=== PATIENT | male | born 1980 | race Caucasian/White ===

== ENCOUNTER 2017-02-19 16:51 | Emergency (ER) | payer OTHER ==
--- NOTE | ~2017-02-19 | CT2 ---
[facility] A Service of [facility] RADIOLOGY TEXT RESULTS PATIENT: TREE DE LA VEGA LOCATION: [facility] : [birth year] UNIT #: [id number] AGE: [address]: Valarie Moseley MD SEX: M ORDER DR: [id number] [facility] [address] [place], [place] [address] [id number] E MR#: [id number] Acc #: [id number] NAME: TREE DE LA VEGA : 1980 SEX: M STUDY DATE/TIME: 02/19/2017 19:29 UNIT: DANDRE ROOM: STUDY DESCRIPTION: CT Abd and Pelv W Cont Attending Physician: Valarie Moseley M.D. Ordering Physician: Valarie Moseley M.D. MEDICAL IMAGING REPORT This report is preliminary unless electronic signature is present EXAM CT abdomen and pelvis. INDICATION Rectal bleeding and lower abdominal pain for 3 days. Rectal bleeding actually started this morning whereas the pain started 3 days ago. TECHNIQUE Axial CT images were obtained from the dome of the diaphragm through the symphysis pubis following administration of oral and intravenous contrast material. This CT exam was performed with one or more of the following radiation dose reduction techniques: automatic exposure control, adjustment of mA and/or kV according to patient size, and iterative reconstruction. FINDINGS Images through the lung bases are clear. Liver and gallbladder appear unremarkable as are the spleen, stomach, proximal small bowel, adrenal glands pancreas gallbladder and kidneys. No free fluid or adenopathy is seen within the abdomen. There is no evidence mechanical bowel obstruction. Patient's appendix is visualized and is within normal limits. Prostate gland is within normal limits. Urinary bladder appears unremarkable. No free fluid or adenopathy is seen within the pelvis. Review of bony windows. Does not demonstrate any aggressive osseous abnormalities. IMPRESSION No acute intraabdominal, or intrapelvic process is identified. Solid [facility] A Service of [facility] RADIOLOGY TEXT RESULTS PATIENT: TREE DE LA VEGA LOCATION: [facility] : 80 UNIT #: [id number] AGE: [address]: Valarie Moseley MD SEX: M ORDER DR: organs appear unremarkable. There is no evidence of mechanical bowel obstruction. Patient's appendix is visualized and is within normal limits. Dictated by... Umu Bond M.D. THIS IS AN ELECTRONICALLY VERIFIED REPORT Umu Bond M.D. at 02/20/2017 10:59 AM VILMA/sofia TD: 02/20/2017 03:44 JOB #: [id number] MEDICAL IMAGING REPORT Page 1 of 1 COPY
[2017-02-19 18:06] LABS: BASOPHIL% 0.5 % (0-2.5); EOSINOPHIL# 0.2 X10e3 (0-0.7); EOSINOPHIL% 1.9 % (0.0-7.0); HEMATOCRIT 45.1 % (38.0-50.0); HEMOGLOBIN 15.5 gm/dL (13.0-16.0); LYMPHOCYTE# 2.7 X10e3 (1.0-3.5); MEAN CELL VOLUME 91.4 FL (83-96); MEAN CORPUSCULAR HEMOGLOBIN 31.3 PG (28-34); MEAN CORPUSCULAR HGB CONC 34.3 g/dL (30-36); MEAN PLATELET VOLUME 8.5 FL (6.5-11.5); MONOCYTE# 0.4 X10e3 (0-1.0); MONOCYTE% 4.9 % (3.0-12.0); NEUTROPHIL# 5.7 X10e3 (1.5-7.1); NEUTROPHIL% 62.7 % (40-75); PLATELET COUNT 247 X10e3 (140-420); RED BLOOD COUNT 4.93 X10e (3.90-5.60); RED CELL DISTRIBUTION WIDTH 12.9 % (11.0-15.5); WHITE BLOOD COUNT 9.1 X10e3 (4.0-10.5)
[2017-02-19 18:09] LABS: DIFF IND NO
[2017-02-19 18:38] LABS: ALBUMIN SERUM 4.5 g/dL (3.5-5.0); BILIRUBIN, DIRECT 0.1 mg/dL (0.0-0.2); BILIRUBIN,INDIRECT 0.5 mg/dL (0.0-0.9); BILIRUBIN,TOTAL 0.6 mg/dL (0.2-2.0); BUN/CREATININE RATIO 17.27; CALCIUM SERUM 9.4 mg/dL (8.4-10.2); CREATININE SERUM 1.1 mg/dL (0.6-1.4); GLOM FILT RATE Estimated 85.9 mL/min (>60); POTASSIUM 3.8 mmol/L (3.5-5.1); PROTEIN TOTAL SERUM 7.3 g/dL (6.0-8.3)
[2017-02-19 18:52] LABS: INR 0.9; PROTHROMBIN TIME (PATIENT) 9.7 SECONDS (9.6-11.5)
[2017-02-19 22:41] LABS: URINE SOURCE CLEAN CATCH
[2017-02-19 22:50] LABS: URINE APPEARANCE CLEAR; URINE BILIRUBIN NEG (NEG); URINE BLOOD NEG (NEG); URINE COLOR YELLOW; URINE GLUCOSE NEG (NEG); URINE KETONE NEG (NEG); URINE LEUKOCYTE ESTERASE NEG (NEG); URINE NITRATE NEG (NEG); URINE PROTEIN NEG (NEG); URINE SPECIFIC GRAVITY 1.032 (1.003-1.035); URINE UROBILINOGEN 0.2 MG/DL (NEG)
[2017-02-19 22:57] LABS: CULTURE INDICATED? NO
[2017-02-21] MEDS ORDERED: DIOVAN (16:51)
[2017-02-21] MEDS ORDERED: NEXIUM (16:51)
== END 2017-02-20 00:24 | disposition home or self-care (01) ==
LOC: CED 16:51
PROVIDERS: Emergency Medicine
DX: K62.5 Hemorrhage of anus and rectum (principal); I10 Essential (primary) hypertension; Z88.1 Allergy status to other antibiotic agents; Z88.8 Allergy status to other drugs, medicaments and biological substances
CPT/HCPCS: 36415; 74177; 80048; 80076; 81003; 83690; 85025; 85610; 96374; 96375; 99284; J2270; J2405; Q9967

== ENCOUNTER 2017-02-21 16:47 | Emergency (ER) | payer OTHER ==
[2017-02-21] MEDS ORDERED: NEXIUM (16:51)
[2017-02-21] MEDS ORDERED: DIOVAN (16:51)
[2017-02-21 18:08] LABS: BASOPHIL% 0.5 % (0-2.5); EOSINOPHIL# 0.3 X10e3 (0-0.7); EOSINOPHIL% 2.9 % (0.0-7.0); HEMATOCRIT 44.1 % (38.0-50.0); HEMOGLOBIN 15.7 gm/dL (13.0-16.0); LYMPHOCYTE# 2.3 X10e3 (1.0-3.5); MEAN CELL VOLUME 90.9 FL (83-96); MEAN CORPUSCULAR HEMOGLOBIN 32.3 PG (28-34); MEAN CORPUSCULAR HGB CONC 35.5 g/dL (30-36); MEAN PLATELET VOLUME 8.3 FL (6.5-11.5); MONOCYTE# 0.4 X10e3 (0-1.0); MONOCYTE% 4.5 % (3.0-12.0); NEUTROPHIL# 5.9 X10e3 (1.5-7.1); NEUTROPHIL% 66.1 % (40-75); PLATELET COUNT 246 X10e3 (140-420); RED BLOOD COUNT 4.86 X10e (3.90-5.60); RED CELL DISTRIBUTION WIDTH 12.9 % (11.0-15.5); WHITE BLOOD COUNT 8.9 X10e3 (4.0-10.5)
[2017-02-21 18:21] LABS: DIFF IND NO
[2017-02-21 18:29] LABS: ALBUMIN SERUM 4.2 g/dL (3.5-5.0); BILIRUBIN, DIRECT 0.1 mg/dL (0.0-0.2); BILIRUBIN,INDIRECT 0.2 mg/dL (0.0-0.9); BILIRUBIN,TOTAL 0.3 mg/dL (0.2-2.0); PROTEIN TOTAL SERUM 7.1 g/dL (6.0-8.3)
[2017-02-21 19:01] LABS: BUN/CREATININE RATIO 11.66; CALCIUM SERUM 9.4 mg/dL (8.4-10.2); CREATININE SERUM 1.2 mg/dL (0.6-1.4); GLOM FILT RATE Estimated 77.4 mL/min (>60); POTASSIUM 3.9 mmol/L (3.5-5.1)
== END 2017-02-21 18:57 | disposition home or self-care (01) ==
LOC: SED 16:47
PROVIDERS: Emergency Medicine
DX: K62.5 Hemorrhage of anus and rectum (principal); J44.9 Chronic obstructive pulmonary disease, unspecified; F17.200 Nicotine dependence, unspecified, uncomplicated; Z98.890 Other specified postprocedural states; Z88.6 Allergy status to analgesic agent; Z88.1 Allergy status to other antibiotic agents
CPT/HCPCS: 36415; 80048; 80076; 85025; 96374; 96375; 99283; C9113; J1170; J2405

== ENCOUNTER 2017-02-26 19:00 | Emergency (ER) | payer OTHER ==
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
[~2017-02-26 19:00] MED LIST: DIOVAN; NEXIUM
== END 2017-02-26 22:33 | disposition home or self-care (01) ==
LOC: CFTX 19:00 → CED 19:00 → CFTX 19:48
DX: S81.811A Laceration without foreign body, right lower leg, initial encounter (principal); S90.01XA Contusion of right ankle, initial encounter; F32.9 Major depressive disorder, single episode, unspecified; J44.9 Chronic obstructive pulmonary disease, unspecified; F17.210 Nicotine dependence, cigarettes, uncomplicated; Z88.6 Allergy status to analgesic agent; Z88.1 Allergy status to other antibiotic agents; W17.89XA Other fall from one level to another, initial encounter; Y92.410 Unspecified street and highway as the place of occurrence of the external cause
CPT/HCPCS: 12002; 73590; 73610; 99284

== ENCOUNTER 2017-02-28 10:12 | Emergency (ER) | payer OTHER ==
--- NOTE | ~2017-02-28 | CT2 ---
[facility] A Service [facility] RADIOLOGY TEXT RESULTS PATIENT: CHRISTIAN DE LA VEGA LOCATION: SED : 80 UNIT #: [id number] AGE: [address]: Keshawn Sue MD SEX: M ORDER DR: [id number] [place] [id number] E MR#: [id number] Acc #: [id number] NAME: CHRISTIAN DE LA VEGA : 1980 SEX: M STUDY DATE/TIME: 02/28/2017 12:35 UNIT: SED ROOM: STUDY DESCRIPTION: CT Abd and Pelv W Cont Attending Physician: Keshawn Sue M.D. Ordering Physician: Keshawn Sue M.D. Primary Care Physician: No Primary Care Physician MEDICAL IMAGING REPORT This report is preliminary unless electronic signature is present. EXAM CT of the abdomen and pelvis with IV contrast media 02/28 COMPARISON 02/19/2017 HISTORY History supplied is diffuse body pain for 3 months worse over the last few days. TECHNIQUE Axial imaging of the abdomen and pelvis was performed with IV contrast media. This CT exam was performed with one or more of the following radiation dose reduction techniques: automatic exposure control, adjustment of mA and/or kV according to patient size, and iterative reconstruction. FINDINGS Lung bases are clear. The liver, gallbladder, spleen, pancreas, adrenal glands and both the right and left kidney are normal. No dilated or thickened loops of bowel are identified. The appendix is normal. No pelvic masses or fluid collections are seen. Bladder is unremarkable. CONCLUSION Normal CT of the abdomen and pelvis. No change from previous study. Dictated by... Srikanth Hall M.D. THIS IS AN ELECTRONICALLY VERIFIED REPORT Srikanth Hall M.D. at 03/03/2017 9:18 AM GUYK/guy [facility] A Service [facility] RADIOLOGY TEXT RESULTS PATIENT: CHRISTIAN DE LA VEGA LOCATION: SED : 80 UNIT #: [id number] AGE: [address]: Keshawn Sue MD SEX: M ORDER DR: TD: 02/28/2017 15:08 JOB #: [id number] MEDICAL IMAGING REPORT Page 1 of 1
[2017-02-28] MEDS ORDERED: FLAGYL PO (10:23)
[2017-02-28] MEDS ORDERED: NEURONTIN300 MG PO (10:23)
[2017-02-28] MEDS ORDERED: BENTYL20 MG PO (10:24)
[2017-02-28] MEDS ORDERED: CIPRO PO (10:24)
[2017-02-28 10:40] LABS: URINE SOURCE CLEAN CATCH
[2017-02-28 10:41] LABS: MICRO INDICATED? NO; URINE APPEARANCE CLEAR; URINE BILIRUBIN NEG (NEG); URINE BLOOD NEG (NEG); URINE COLOR YELLOW; URINE GLUCOSE NEG (NORM); URINE KETONE NEG (NEG); URINE LEUKOCYTE ESTERASE NEG (NEG); URINE NITRATE NEG (NEG); URINE PROTEIN NEG (NEG); URINE SPECIFIC GRAVITY 1.015 (1.003-1.035); URINE UROBILINOGEN 0.2 MG/DL (NORM)
[2017-02-28 10:52] LABS: BASOPHIL% 0.8 % (0-2.5); EOSINOPHIL# 0.2 X10e3 (0-0.7); EOSINOPHIL% 2.5 % (0.0-7.0); HEMATOCRIT 43.6 % (38.0-50.0); HEMOGLOBIN 15.1 gm/dL (13.0-16.0); LYMPHOCYTE# 2.1 X10e3 (1.0-3.5); LYMPHOCYTE% 32.4 % (17.0-45.0); MEAN CELL VOLUME 90.5 FL (83-96); MEAN CORPUSCULAR HEMOGLOBIN 31.4 PG (28-34); MEAN CORPUSCULAR HGB CONC 34.7 g/dL (30-36); MONOCYTE# 0.3 X10e3 (0-1.0); MONOCYTE% 4.7 % (3.0-12.0); NEUTROPHIL# 3.8 X10e3 (1.5-7.1); NEUTROPHIL% 59.6 % (40-75); PLATELET COUNT 216 X10e3 (140-420); RED BLOOD COUNT 4.82 X10e (3.90-5.60); RED CELL DISTRIBUTION WIDTH 12.9 % (11.0-15.5); WHITE BLOOD COUNT 6.4 X10e3 (4.0-10.5)
[2017-02-28 10:55] LABS: DIFF IND NO
[2017-02-28 11:10] LABS: ALBUMIN SERUM 4.1 g/dL (3.5-5.0); BILIRUBIN,TOTAL 0.6 mg/dL (0.2-2.0); BUN/CREATININE RATIO 16.36; CALCIUM SERUM 9.1 mg/dL (8.4-10.2); CREATININE SERUM 1.1 mg/dL (0.6-1.4); GLOM FILT RATE Estimated 85.9 mL/min (>60); POTASSIUM 3.8 mmol/L (3.5-5.1)
== END 2017-02-28 13:41 | disposition home or self-care (01) ==
LOC: SED 10:12
PROVIDERS: Emergency Medicine
DX: K52.9 Noninfective gastroenteritis and colitis, unspecified (principal); J44.9 Chronic obstructive pulmonary disease, unspecified; F31.9 Bipolar disorder, unspecified; G40.909 Epilepsy, unspecified, not intractable, without status epilepticus; Z88.1 Allergy status to other antibiotic agents; Z88.8 Allergy status to other drugs, medicaments and biological substances; Z79.899 Other long term (current) drug therapy
CPT/HCPCS: 74177; 80053; 81003; 82150; 83690; 85025; 96361; 96374; 96375; 99284; J1170; J2405; Q9967

== ENCOUNTER 2017-03-29 14:51 | Emergency (ER) | payer OTHER ==
--- NOTE | ~2017-03-29 | CR282 ---
[facility] A Service [facility] RADIOLOGY TEXT RESULTS PATIENT: CHRISTIAN DE LA VEGA LOCATION: SED : 80 UNIT #: [id number] AGE: [address]: Aric Ely MD SEX: M ORDER DR: [id number] [place] [id number] E MR#: [id number] Acc #: [id number] NAME: CHRISTIAN DE LA VEGA : 1980 SEX: M STUDY DATE/TIME: 03/29/2017 15:31 UNIT: SED ROOM: STUDY DESCRIPTION: CR Wrist Min 3 View Rt Attending Physician: Aric Ely M.D. Ordering Physician: Aric Ely M.D. Primary Care Physician: No Primary Care Physician MEDICAL IMAGING REPORT This report is preliminary unless electronic signature is present. EXAM Right wrist, 3 views. HISTORY Right wrist pain after punching a wall. COMPARISON None. FINDINGS Wrist evaluation in multiple projections shows normal mineralization of the bony structures about the wrist and satisfactory articular relationship of the radius and ulna to the proximal carpal row and of the distal carpal segments to the metacarpal bases. There is no indication of fracture or dislocation, and no soft tissue radiopaque foreign body is present. No congenital defects are apparent. IMPRESSION Normal right wrist. Dictated by... Berry Arteaga M.D. THIS IS AN ELECTRONICALLY VERIFIED REPORT Berry Arteaga M.D. at 04/03/2017 10:32 AM NANY/patricia TD: 03/29/2017 20:28 JOB #: [id number] MEDICAL IMAGING REPORT [facility] A Service [facility] RADIOLOGY TEXT RESULTS PATIENT: CHRISTIAN DE LA VEGA LOCATION: SED : 80 UNIT #: [id number] AGE: [address]: Aric Ely MD SEX: M ORDER DR: Page 1 of 1
--- NOTE | ~2017-03-29 | CR142 ---
[facility] A Service of [facility] RADIOLOGY TEXT RESULTS PATIENT: CHRISTIAN DE LA VEGA LOCATION: SED : 80 UNIT #: [id number] AGE: [address]: Aric Ely MD SEX: M ORDER DR: [id number] [place] [id number] E MR#: [id number] Acc #: [id number] NAME: CHRISTIAN DE LA VEGA : 1980 SEX: M STUDY DATE/TIME: 03/29/2017 15:31 UNIT: SED ROOM: STUDY DESCRIPTION: CR Hand Min 3 Views Rt Attending Physician: Aric Ely M.D. Ordering Physician: Aric Ely M.D. Primary Care Physician: No Primary Care Physician MEDICAL IMAGING REPORT This report is preliminary unless electronic signature is present. EXAM Right hand, 3 views, 03/29/2017. COMPARISON None. HISTORY Pain after punching a wall today. FINDINGS Question small triquetral corner fracture, possibly chronic, better seen on the hand than wrist exam. Otherwise, no fracture or dislocation is seen. IMPRESSION Question minimally-displaced fracture or possibly chronic versus acute at the ulnar aspect of the wrist along the distal ulnar corner of the triquetrum. Correlate for localized tenderness, otherwise, negative. Dictated by... Berry Arteaga M.D. THIS IS AN ELECTRONICALLY VERIFIED REPORT Berry Arteaga M.D. at 04/03/2017 10:32 AM NANY/patricia TD: 03/29/2017 20:54 JOB #: [id number] MEDICAL IMAGING REPORT [facility] A Service [facility] RADIOLOGY TEXT RESULTS PATIENT: CHRISTIAN DE LA VEGA LOCATION: SED : 80 UNIT #: [id number] AGE: [address]: Aric Ely MD SEX: M ORDER DR: Page 1 of 1
[~2017-03-29 14:51] MED LIST changes: +BENTYL20 MG PO; +CIPRO PO; +FLAGYL PO; +NEURONTIN300 MG PO
[2017-03-29] MEDS ORDERED: ESCITALOPRAM OX10 MG PO (15:01)
[2017-03-29] MEDS ORDERED: ROBAXIN 750750 M1 DOB (15:02)
[2017-03-29] MEDS ORDERED: DOC-Q-LACE100 MG (15:02)
[2017-03-29] MEDS ORDERED: ZOFRAN ODT4 M1 (15:02)
== END 2017-03-29 17:30 | disposition home or self-care (01) ==
LOC: SED 14:51
DX: S63.511A Sprain of carpal joint of right wrist, initial encounter (principal); K21.9 Gastro-esophageal reflux disease without esophagitis; F17.210 Nicotine dependence, cigarettes, uncomplicated; Z88.1 Allergy status to other antibiotic agents; Z88.6 Allergy status to analgesic agent; Z79.899 Other long term (current) drug therapy; W22.8XXA Striking against or struck by other objects, initial encounter; Y92.009 Unspecified place in unspecified non-institutional (private) residence as the place of occurrence of the external cause
CPT/HCPCS: 29125; 29515; 73110; 73130; 99283

== ENCOUNTER 2017-03-31 15:47 | Emergency (ER) | payer OTHER ==
[~2017-03-31 15:47] MED LIST changes: +DOC-Q-LACE100 MG; +ESCITALOPRAM OX10 MG PO; +ROBAXIN 750750 M1 DOB; +ZOFRAN ODT4 M1
== END 2017-03-31 17:20 | disposition home or self-care (01) ==
LOC: CED 15:47 → CFTX 15:47
DX: S62.111A Displaced fracture of triquetrum [cuneiform] bone, right wrist, initial encounter for closed fracture (principal); F32.9 Major depressive disorder, single episode, unspecified; F17.210 Nicotine dependence, cigarettes, uncomplicated; W22.01XA Walked into wall, initial encounter; Y92.009 Unspecified place in unspecified non-institutional (private) residence as the place of occurrence of the external cause
CPT/HCPCS: 29125; 99283

== ENCOUNTER 2017-04-04 15:48 | Emergency (ER) | payer OTHER | END 2017-04-04 17:58 | disposition home or self-care (01) | LOC: CFTX 15:48 → CED 15:48 → CFTX 17:20 | DX: S62.111A Displaced fracture of triquetrum [cuneiform] bone, right wrist, initial encounter for closed fracture (principal); F32.9 Major depressive disorder, single episode, unspecified; F17.210 Nicotine dependence, cigarettes, uncomplicated; W22.01XA Walked into wall, initial encounter | CPT/HCPCS: 99283 ==

== ENCOUNTER 2017-04-09 18:03 | Emergency (ER) | payer OTHER ==
[~2017-04-09] VITALS: Ht 180.3 cm; Wt 109.8 kg
== END 2017-04-09 19:20 | disposition home or self-care (01) ==
LOC: CFTX 18:03 → CED 18:03 → CFTX 18:42
DX: Z76.0 Encounter for issue of repeat prescription (principal); I10 Essential (primary) hypertension; F32.9 Major depressive disorder, single episode, unspecified; F41.9 Anxiety disorder, unspecified; F17.210 Nicotine dependence, cigarettes, uncomplicated; Z88.1 Allergy status to other antibiotic agents; Z88.8 Allergy status to other drugs, medicaments and biological substances
CPT/HCPCS: 99281

== ENCOUNTER 2017-04-19 16:21 | Emergency (ER) | payer OTHER ==
[~2017-04-19] VITALS: Ht 180.3 cm; Wt 112.5 kg
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
== END 2017-04-19 18:32 | disposition home or self-care (01) ==
LOC: CED 16:21 → CFTX 16:21
DX: S60.221A Contusion of right hand, initial encounter (principal); I10 Essential (primary) hypertension; W17.89XA Other fall from one level to another, initial encounter
CPT/HCPCS: 29280; 73130; 99283

== ENCOUNTER 2017-04-23 15:15 | Emergency (ER) | payer OTHER ==
[2017-04-23] MEDS ORDERED: VALSARTAN-HCTZ1 EACH PO (15:17)
[2017-04-23] MEDS ORDERED: NEXIUM PO (15:18)
[2017-04-23] MEDS ORDERED: DOCUSATE SODIU100 MG PO (15:18)
[2017-04-23 15:49] LABS: MICRO INDICATED? NO; URINE APPEARANCE CLEAR; URINE BILIRUBIN NEG (NEG); URINE BLOOD NEG (NEG); URINE COLOR YELLOW; URINE GLUCOSE NEG (NORM); URINE KETONE NEG (NEG); URINE LEUKOCYTE ESTERASE NEG (NEG); URINE NITRATE NEG (NEG); URINE PROTEIN NEG (NEG); URINE SOURCE CLEAN CATCH; URINE UROBILINOGEN 0.2 MG/DL (NORM)
[2017-04-23 16:22] LABS: BASOPHIL# 0.1 X10e3 (0-0.3); BASOPHIL% 0.7 % (0-2.5); EOSINOPHIL# 0.2 X10e3 (0-0.7); EOSINOPHIL% 2.5 % (0.0-7.0); HEMATOCRIT 43.5 % (38.0-50.0); HEMOGLOBIN 15.3 gm/dL (13.0-16.0); LYMPHOCYTE# 2.2 X10e3 (1.0-3.5); LYMPHOCYTE% 23.7 % (17.0-45.0); MEAN CELL VOLUME 90.1 FL (83-96); MEAN CORPUSCULAR HEMOGLOBIN 31.7 PG (28-34); MEAN CORPUSCULAR HGB CONC 35.1 g/dL (30-36); MONOCYTE# 0.4 X10e3 (0-1.0); MONOCYTE% 3.7 % (3.0-12.0); NEUTROPHIL# 6.6 X10e3 (1.5-7.1); NEUTROPHIL% 69.4 % (40-75); PLATELET COUNT 226 X10e3 (140-420); RED BLOOD COUNT 4.82 X10e (3.90-5.60); RED CELL DISTRIBUTION WIDTH 12.5 % (11.0-15.5); WHITE BLOOD COUNT 9.4 X10e3 (4.0-10.5)
[2017-04-23 16:25] LABS: DIFF IND NO
[2017-04-23 16:34] LABS: ALBUMIN SERUM 3.8 g/dL (3.5-5.0); ALKALINE PHOSPHATASE 58 U/L (32-92); ALT (SGPT) 41 U/L (10-40); AST (SGOT) 35 U/L (10-42); BILIRUBIN,TOTAL 0.7 mg/dL (0.2-2.0); BLOOD UREA NITROGEN 13 mg/dL (9-23); CALCIUM SERUM 8.9 mg/dL (8.4-10.2); CARBON DIOXIDE 25 mmol/L (22-31); CHLORIDE 106 mmol/L (100-111); GLOM FILT RATE Estimated 96.4 mL/min (>60); GLUCOSE FASTING 129 mg/dL (70-110); LIPASE 30 U/L (22-51); POTASSIUM 3.6 mmol/L (3.5-5.1); PROTEIN TOTAL SERUM 6.6 g/dL (6.0-8.3); SODIUM 138 mmol/L (135-145)
[2017-04-23 16:36] LABS: BILIRUBIN, DIRECT <0.1 mg/dL (0.0-0.2); BILIRUBIN,INDIRECT 0.6 mg/dL (0.0-0.9)
== END 2017-04-23 17:30 | disposition home or self-care (01) ==
LOC: SED 15:15
PROVIDERS: Emergency Medicine
DX: K58.0 Irritable bowel syndrome with diarrhea (principal); J44.9 Chronic obstructive pulmonary disease, unspecified; J45.909 Unspecified asthma, uncomplicated; K21.9 Gastro-esophageal reflux disease without esophagitis; F17.210 Nicotine dependence, cigarettes, uncomplicated; Z88.1 Allergy status to other antibiotic agents; Z88.6 Allergy status to analgesic agent; Z79.899 Other long term (current) drug therapy
CPT/HCPCS: 36415; 80048; 80076; 81003; 83690; 85025; 86677; 96361; 96372; 96374; 96375; 99284; J0500; J2405; J2765

== ENCOUNTER 2017-05-01 12:34 | Emergency (ER) | payer OTHER ==
[~2017-05-01] VITALS: Ht 180.3 cm; Wt 114.3 kg
[~2017-05-01 12:34] MED LIST changes: +DOCUSATE SODIU100 MG PO; +NEXIUM PO; +VALSARTAN-HCTZ1 EACH PO
== END 2017-05-01 13:15 | disposition home or self-care (01) ==
LOC: CED 12:34 → CFTX 12:34
DX: K08.89 Other specified disorders of teeth and supporting structures (principal); G89.18 Other acute postprocedural pain
CPT/HCPCS: 99282

== ENCOUNTER 2017-05-28 17:23 | Emergency (ER) | payer OTHER ==
[~2017-05-28] VITALS: Ht 180.3 cm; Wt 113.4 kg
--- NOTE | ~2017-05-28 | CR229 ---
[facility] A Service [facility] RADIOLOGY TEXT RESULTS PATIENT: CHRISTIAN DE LA VEGA LOCATION: [place] : 80 UNIT #: [id number] AGE: [address]: CECILIO HARRIS APRN SEX: M ORDER DR: [id number] [place] [id number] [facility] [place], [place] [address] [id number] E MR#: [id number] Acc #: [id number] NAME: CHRISTIAN DE LA VEGA : 1980 SEX: M STUDY DATE/TIME: 05/28/2017 18:45 UNIT: [facility] ROOM: STUDY DESCRIPTION: CR Shoulder Min 2 View Lt Attending Physician: Cecilio Harris Aprn Ordering Physician: [facility] Primary Care Physician: [facility] MEDICAL IMAGING REPORT This report is preliminary unless electronic signature is present EXAM Left shoulder series dated 05/28/2017. COMPARISON None HISTORY Left shoulder pain for 4 days. It started while changing out a flat tire. FINDINGS Three views of the left shoulder were obtained. FINDINGS AP view with internal and external rotation of the shoulder girdle shows satisfactory relationship of the humeral head and glenoid fossa. The joint space is normal. There is no identifiable fracture or dislocation or bony destructive process about the shoulder girdle anatomy. The acromioclavicular joint is normal. There is no radiopaque foreign body in the region. IMPRESSION Normal shoulder. Dictated by... August Mauro M.D. THIS IS AN ELECTRONICALLY VERIFIED REPORT August Mauro M.D. at 05/29/2017 7:07 PM CPR/cmm TD: 05/29/2017 08:19 [facility] A Service [facility] RADIOLOGY TEXT RESULTS PATIENT: CHRISTIAN DE LA VEGA LOCATION: [facility] : 80 UNIT #: [id number] AGE: [address]: CECILIO HARRIS APRN SEX: M ORDER DR: JOB #: [id number] MEDICAL IMAGING REPORT Page 1 of 1 COPY
== END 2017-05-28 19:53 | disposition home or self-care (01) ==
LOC: CFTX 17:23 → CED 17:23 → CFTX 18:23
DX: S46.912A Strain of unspecified muscle, fascia and tendon at shoulder and upper arm level, left arm, initial encounter (principal); F17.210 Nicotine dependence, cigarettes, uncomplicated; I10 Essential (primary) hypertension; J44.9 Chronic obstructive pulmonary disease, unspecified; F41.9 Anxiety disorder, unspecified; Z88.8 Allergy status to other drugs, medicaments and biological substances; Z88.1 Allergy status to other antibiotic agents; W22.8XXA Striking against or struck by other objects, initial encounter; Y92.410 Unspecified street and highway as the place of occurrence of the external cause
CPT/HCPCS: 73030; 99283